=== PATIENT | male | born 1965 | race Caucasian/White ===

== ENCOUNTER → 2016-07-24 | Outpatient (CLI) | payer OTHER ==
[~2016-07-24] MED LIST: ATENOLOL25 MG PO; HCTZ 25MG25 MG PO; HCTZ PO; LANSOPRAZOLE30 MG PO; LORTAB 5/500 501 TAB PO; METOPROLOL TART50 MG PO; MOTRIN600 MG PO; NEXIUM 20MG CAP20 MG PO; NO HOME MEDICATIONS; PRILOSEC 20MG20 MG PO; TENORMIN50 M1 PO
== END ==
LOC: VAS 15:30
DX: I51.7 Cardiomegaly (principal); I34.0 Nonrheumatic mitral (valve) insufficiency

== ENCOUNTER → 2016-10-09 | Outpatient (CLI) | payer OTHER ==
[2015-11-07 14:13] VITALS: BP 164/95
== END ==
LOC: LAB 16:44
DX: I10 Essential (primary) hypertension (principal)

== ENCOUNTER 2019-04-19 16:32 | Emergency (ER) | payer BC ==
[~2019-04-19] VITALS: Ht 172.7 cm; Wt 90.9 kg
[2019-04-19] MEDS ORDERED: ATORVASTATIN CA40 MG PO (16:50)
[2019-04-19] MEDS ORDERED: ASPIR LOW81 MG PO (16:50)
[2019-04-19] MEDS ORDERED: CARVEDILOL25 MG PO (16:50)
[2019-04-19] MEDS ORDERED: NORVASC 10MG10 MG PO (16:50)
[2019-04-19] MEDS ORDERED: LEVOTHYROXINE0.05 MG PO (16:51)
[2019-04-19] MEDS ORDERED: LOSARTAN POTAS100 MG PO (16:51)
[2019-04-19 17:07] LABS: EOS # 0.2 (0.04-0.40); EOS % 2.7 % (0.0-4.0); HEMATOCRIT 43.4 % (42.0-52.0); HEMOGLOBIN 14.8 g/dL (13.5-18.0); LYMPH# 1.1 (1.50-4.00); MEAN CELL VOLUME 86 fl (78-100); MEAN CORPUSCULAR HEMOGLOBIN 29 pg (27-31); MEAN CORPUSCULAR HGB CONC 34 g/dL (33-37); MEAN PLATELET VOLUME 11.2 fl (7.4-10.4); MONO # 0.8 (0.20-0.80); NEU # 4.8 (1.40-6.50); PLATELET COUNT 178 K/mm3 (130-400); RED BLOOD COUNT 5.06 M/mm3 (4.20-5.60); RED CELL DISTRIBUTION WIDTH 13.8 % (11.5-14.5); WHITE BLOOD COUNT 6.9 K/mm3 (4.8-10.8)
[2019-04-19 17:16] LABS: ALBUMIN 4.3 g/dL (3.5-5.0); POTASSIUM 4.1 mmol/L (3.5-5.1); SODIUM 136 mmol/L (136-145)
[2019-04-19 17:17] LABS: CALCIUM 8.7 mg/dL (8.3-10.5)
[2019-04-19 17:18] LABS: GLUCOSE 123 mg/dL (75-110); TOTAL PROTEIN 7.3 g/dL (6.4-8.3)
[2019-04-19 17:19] LABS: CARBON DIOXIDE 23 mmol/L (22-29)
[2019-04-19 17:23] LABS: AST-SGOT 20 U/L (5-34)
[2019-04-19 17:25] LABS: ALT/SGPT 32 U/L (0-55)
[2019-04-19 17:31] LABS: TROPONIN-I < 0.03 ng/mL (<0.030)
[2019-04-19 17:45] LABS: URINE APPEARANCE CLEAR; URINE COLOR YELLOW; URINE PROTEIN(semi-quant) TRACE mg/dL (NEGATIVE)
[2019-04-19 17:46] LABS: URINE BILIRUBIN NEGATIVE (NEGATIVE); URINE BLOOD NEGATIVE (NEGATIVE); URINE GLUCOSE NEGATIVE (NEGATIVE); URINE KETONE NEGATIVE (NEGATIVE); URINE LEUKOCYTE ESTERASE NEGATIVE (NEGATIVE); URINE MUCUS PRESENT (NOT PRESENT); URINE NITRATE NEGATIVE (NEGATIVE); URINE UROBILINOGEN NORMAL (NORMAL); URINE WBC 0-1 /hpf (0-3)
[2019-04-19] MEDS ORDERED: ZOFRAN ODT4 MG PO (19:07)
[2019-04-19 19:18] VITALS: BP 126/66
== END 2019-04-19 19:18 | disposition home or self-care (01) ==
LOC: ED 16:32
PROVIDERS: Physician Assistant
DX: K52.9 Noninfective gastroenteritis and colitis, unspecified (principal); Z79.82 Long term (current) use of aspirin
CPT/HCPCS: J2405; J7030

== ENCOUNTER → 2020-06-10 | Outpatient (CLI) | payer OTHER ==
[~2020-06-10] MED LIST changes: +ASPIR LOW81 MG PO; +ATORVASTATIN CA40 MG PO; +CARVEDILOL25 MG PO; +LEVOTHYROXINE0.05 MG PO; +LOSARTAN POTAS100 MG PO; +NORVASC 10MG10 MG PO; +ZOFRAN ODT4 MG PO
== END ==
LOC: LAB 07:38
DX: U07.1 COVID-19 (principal)